=== PATIENT | female | born 1995 | race Caucasian/White ===

== ENCOUNTER 2017-07-31 15:06 | Emergency (ER) | payer OTHER, BC ==
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
[2017-07-31 16:37] VITALS: BP 118/75
== END 2017-07-31 16:33 | disposition home or self-care (01) ==
LOC: ER 15:06
DX: S00.93XA Contusion of unspecified part of head, initial encounter (principal); V48.5XXA Car driver injured in noncollision transport accident in traffic accident, initial encounter
CPT/HCPCS: 70450; 99284